=== PATIENT | female | born 1950 | race Caucasian/White ===

== ENCOUNTER 2016-09-07 08:40 | Emergency (ER) | payer MEDICARE, BC ==
[~2016-09-07] VITALS: Ht 162.6 cm; Wt 78.9 kg
[~2016-09-07 08:40] MED LIST: AMLO-145 ODT; LOSA100T7 ORAL; MELO-110 ORAL; PANT40TA4 ORAL; PRAV40TA76 ORAL
[2016-09-07 08:43] VITALS: Ht 162.6 cm; Wt 78.9 kg
[2016-09-07] MEDS ORDERED: ALBUTEROL 0.083% (NEB) 2.5 MG/3 ML AMP NEB STA (09:24)
[2016-09-07] MEDS ORDERED: METHYLPREDNISOLONE 125 MG INJ IV STA (09:24)
[2016-09-07] MEDS ORDERED: IPRATROPIUM (NEB) 0.5 MG/2.5 ML AMP NEB STA (09:24)
[2016-09-07 09:46] LABS: ADD SCAN DIFF NO
--- NOTE | 2016-09-07 09:47 | RADRPT ---
PROCEDURE: Chest x-ray CLINICAL INDICATION: Pain. TECHNIQUE: One-view frontal. COMPARISON: 10/10/2015 FINDINGS: The cardiac silhouette is normal. No infiltrates are noted. No hilar abnormalities are identified. No pneumothorax or pleural effusions are visualized. Mild aortic calcification/atherosclerosis is noted. IMPRESSION: 1. No active cardiopulmonary changes. RPTAT: HGSG .Alejandro Antunez MD, MD Date Time Electronically viewed and signed by .Alejandro Antunez MD, MD on 09/07/2016 09:46 .G/
[2016-09-07 09:52] LABS: BASOPHIL # 0.1 10^3/ul (0.0-0.1); BASOPHILS % 0.9 % (0.0-2.0); EOSINOPHILS # 0.4 10^3/ul (0.0-0.5); EOSINOPHILS % 6.6 % (0.0-7.0); HEMATOCRIT 35.7 % (37.0-47.0); HEMOGLOBIN 12.1 g/dl (12.0-16.0); LYMPHOCYTES # 1.8 10^3/ul (0.8-2.9); LYMPHOCYTES % 30.4 % (15.0-51.0); MEAN CORPUSCULAR HEMOGLOBIN 28.2 pg (29.0-33.0); MEAN CORPUSCULAR HGB CONC 33.9 g/dl (32.0-37.0); MEAN CORPUSCULAR VOLUME 83.2 fl (82.0-101.0); MEAN PLATELET VOLUME 9.6 fl (7.4-10.4); MONOCYTE # 0.4 10^3/ul (0.3-0.9); NEUTROPHIL # 3.2 10^3/ul (1.6-7.5); NEUTROPHILS % 54.9 % (39.0-77.0); PLATELET COUNT 257 10^3/UL (140-415); RED BLOOD COUNT 4.29 10^6/ul (4.20-5.40); RED CELL DISTRIBUTION WIDTH 12.2 % (11.5-14.5); WHITE BLOOD COUNT 5.8 10^3/ul (4.8-10.8)
[2016-09-07 09:58] LABS: CHLORIDE 106 mmol/L (97-110)
[2016-09-07 09:59] LABS: POTASSIUM 3.9 mmol/L (3.5-5.1); SODIUM 141 mmol/L (135-144)
[2016-09-07 10:01] LABS: CREATININE 0.89 mg/dl (0.44-1.00)
[2016-09-07 10:02] LABS: ANION GAP 16 (8-16); BLOOD UREA NITROGEN 14 mg/dl (7-20); CARBON DIOXIDE 23 mmol/L (21-31); GLUCOSE 113 mg/dl (70-220)
[2016-09-07 10:15] LABS: TROPONIN-I < 0.012 ng/ml (0.00-0.12)
[2016-09-07] MEDS ORDERED: AZIT250T94 PO (10:43)
[2016-09-07] MEDS ORDERED: PRED20TA PO (10:43)
[2016-09-07] MEDS ORDERED: ALBU2.5V3 NEB (10:43)
--- NOTE | 2016-09-07 10:47 | ERD ---
ER Documentation Chief Complaint Date/Time DATE: 09/07/16 TIME: 10:44 Chief Complaint sob since last night HPI This is 66-year-old female complains of cough for approximately 1 week. She has some increased shortness of breath today. She has albuterol inhaler but does not seem to work much she does have a machine but does not have any solution. No history of asthma or COPD or other lung issues. No chest pain no fever chills no nausea vomiting no runny nose. She says this morning she is having some slight increased work of breathing with some wheezing. ROS All systems reviewed and are negative except as per history of present illness. Medications Home Meds Active Scripts Prednisone* (Prednisone*) 20 Mg Tab, 60 MG PO DAILY for 5 Days, TAB Prov:AMITA GANDHI DO 09/07/16 Azithromycin* (Zithromax*) 250 Mg Tablet, 250 MG PO .ZPACK DIRECTED, #6 TAB TAKE 500 MG (2 TABS) THE FIRST DAY THEN 250 MG (1 TAB) DAYS 2-5 Prov:AMITA GANDHI DO 09/07/16 Albuterol Sulfate* (Albuterol Sulfate* Neb) 0.083%-3 Ml Neb, 2.5 MG NEB Q4 Y for SHORTNESS OF BREATH, #30 EA Prov:AMITA GANDHI DO 09/07/16 Reported Medications Losartan Potassium* (Losartan Potassium*) 100 Mg Tablet, 100 MG ORAL DAILY, #30 10/10/15 Meloxicam* (Mobic*) 15 Mg Tablet, 15 MG ORAL DAILY, #30 10/10/15 Pantoprazole* (Pantoprazole*) 40 Mg Tablet.dr, 40 MG ORAL DAILY, #30 10/10/15 Pravastatin Sodium* (Pravastatin Sodium*) 40 Mg Tablet, 40 MG ORAL DAILY, #30 10/10/15 Amlodipine Besylate* (Amlodipine Besylate*) 5 Mg Tablet, 5 MG ODT DAILY, #30 10/10/15 Allergies Allergies: Coded Allergies: cholecalciferol (vit D3) (Verified Allergy, Unknown, 03/16/14) ergocalciferol (vit D2) (Verified Allergy, Unknown, 03/16/14) PMhx/Soc History of Surgery: Yes (Appendectomy, thryoid, foot) Anesthesia Reaction: Yes (Pt states hard hard time waking up) Hx Neurological Disorder: No Hx Respiratory Disorders: No Hx Cardiac Disorders: Yes (HTN, HL, ) Hx Psychiatric Problems: No Hx Miscellaneous Medical Probl: No Hx Alcohol Use: No Hx Substance Use: No Hx Tobacco Use: Yes Smoking Status: Current every day smoker FmHx Family History: No coronary disease Physical Exam Vitals Vital Signs Date Time Temp Pulse Resp B/P Pulse Ox O2 Delivery O2 Flow Rate FiO2 09/07/16 09:40 Nasal Cannula 2 09/07/16 09:36 68 18 99 Nasal Cannula 2.0 09/07/16 08:55 98.1 83 18 124/60 99 Room Air 09/07/16 08:55 Nasal Cannula 2.0 09/07/16 08:43 98.1 83 18 124/60 99 Physical Exam Const: Well-developed, well-nourished Head: Atraumatic, normocephalic Eyes: Normal Conjunctiva, PERRLA, EOMI, normal sclera, no nystagmus ENT: Normal External Ears, Nose and Mouth, moist mucus membranes. Neck: Full range of motion. No meningismus, no lymphadenopathy. Resp: Slight increased work of breathing with some good air movement with some expiratory wheezing. Cardio: Regular rate and rhythm, no murmurs, S1 S2 present Abd: Soft, non tender x 4, non distended. Normal bowel sounds, no guarding or rebound, no pulsitile abdominal masses or bruits Skin: No petechiae or rashes, no ecchymosis , no maculopapular rash Back: No midline or flank tenderness Ext: No cyanosis, or edema, FROM x 4, normal inspection, neurovascularly intact x 4 Neur: Awake and alert, STR 5/5 x 4, sensation intact x 4, no focal findings, cerebellum intact Psych: Normal Mood and Affect Result Diagram: 09/07/1635 09/07/1635 Results 24 hrs Laboratory Tests Test 09/07/16 09:35 White Blood Count 5.810^3/ul Red Blood Count 4.2910^6/ul Hemoglobin 12.1g/dl Hematocrit 35.7% Mean Corpuscular Volume 83.2fl Mean Corpuscular Hemoglobin 28.2pg Mean Corpuscular Hemoglobin Concent 33.9g/dl Red Cell Distribution Width 12.2% Platelet Count 09890^3/UL Mean Platelet Volume 9.6fl Neutrophils % 54.9% Lymphocytes % 30.4% Monocytes % 7.0% Eosinophils % 6.6% Basophils % 0.9% Nucleated Red Blood Cells % 0.0/100WBC Neutrophils # 3.210^3/ul Lymphocytes # 1.810^3/ul Monocytes # 0.410^3/ul Eosinophils # 0.410^3/ul Basophils # 0.110^3/ul Nucleated Red Blood Cells # 0.010^3/ul Sodium Level 141mmol/L Potassium Level 3.9mmol/L Chloride Level 106mmol/L Carbon Dioxide Level 23mmol/L Anion Gap 16 Blood Urea Nitrogen 14mg/dl Creatinine 0.89mg/dl Glucose Level 113mg/dl Calcium Level 9.0mg/dl Troponin I < 0.012ng/ml Current Medications Medications (Trade) Dose Ordered Sig/Juan Pablo Route PRN Reason Start Time Stop Time Status Last Admin Dose Admin Albuterol (Proventil 0.083% (Neb)) 7.5 mg ONCE STAT NEB 09/07/16 09:24 09/07/16 09:27 DC 09/07/16 09:35 Ipratropium [place] (Atrovent 0.02% (Neb)) 1.5 mg ONCE STAT NEB 09/07/16 09:24 09/07/16 09:27 DC 09/07/16 09:34 Methylprednisolone Sodium Succinate (Solu-Medrol) 125 mg ONCE STAT IV 09/07/16 09:24 09/07/16 09:27 DC 09/07/16 09:38 Procedures/MDM PROCEDURE: Chest x-ray CLINICAL INDICATION: Pain. TECHNIQUE: One-view frontal. COMPARISON: 10/10/2015 FINDINGS: The cardiac silhouette is normal. No infiltrates are noted. No hilar abnormalities are identified. No pneumothorax or pleural effusions are visualized. Mild aortic calcification/atherosclerosis is noted. IMPRESSION: 1. No active cardiopulmonary changes. RPTAT: HGSG .Alejandro Antunez MD, MD Date Time Electronically viewed and signed by .Alejandro Antunez MD, MD on 09/07/2016 09: 46 .G/ CC: AMITA GANDHI DO Patient received continuous breathing treatments and is feeling better. Repeat exam demonstrates clear breath sounds no increased work of breathing. Patient likely has a viral bronchitis we will treat with prednisone Z-Dequan and albuterol neb solution Departure Diagnosis: Primary Impression: Bronchitis Condition: Stable Patient Instructions: Bronchitis, Antiobiotic Treatment (Adult) Referrals: FELICITY EASLEY (PCP) AMITA GANDHI DO Sep 07, 2016 10:47
[2016-09-07 11:31] VITALS: BP 138/85; PULSE 77; RESP 18; TEMP 98
== END 2016-09-07 11:32 | disposition home or self-care (01) ==
LOC: E/R 08:40
DX: J20.9 Acute bronchitis, unspecified (principal); I10 Essential (primary) hypertension; F17.210 Nicotine dependence, cigarettes, uncomplicated
CPT/HCPCS: 71010; 80048; 84484; 85025; 94644; 96374; 99284; J2930